=== PATIENT | male | born 1940 | race Caucasian/White ===

== ENCOUNTER → 2020-12-14 | Outpatient (CLI) | payer OTHER, BC | LOC: SJCVC 11:07 | PROVIDERS: ATTEND Internal Medicine Cardiovascular Disease | DX: I25.810 Atherosclerosis of coronary artery bypass graft(s) without angina pectoris (principal); I10 Essential (primary) hypertension; E78.5 Hyperlipidemia, unspecified; I65.23 Occlusion and stenosis of bilateral carotid arteries; H34.233 Retinal artery branch occlusion, bilateral; I35.0 Nonrheumatic aortic (valve) stenosis; Z95.5 Presence of coronary angioplasty implant and graft; K57.90 Diverticulosis of intestine, part unspecified, without perforation or abscess without bleeding; L72.3 Sebaceous cyst; Z79.899 Other long term (current) drug therapy; Z88.0 Allergy status to penicillin; Z88.1 Allergy status to other antibiotic agents; Z88.5 Allergy status to narcotic agent; Z88.8 Allergy status to other drugs, medicaments and biological substances ==

== ENCOUNTER → 2021-01-10 | Outpatient (CLI) | payer OTHER, BC | LOC: SJCVCIMAG 08:07 | PROVIDERS: ATTEND Internal Medicine Cardiovascular Disease | DX: I07.1 Rheumatic tricuspid insufficiency (principal); I10 Essential (primary) hypertension; R06.00 Dyspnea, unspecified; R53.83 Other fatigue ==

== ENCOUNTER → 2021-01-27 | Outpatient (CLI) | payer OTHER, BC | LOC: RAD 12:29 | PROVIDERS: ATTEND Internal Medicine | DX: J44.9 Chronic obstructive pulmonary disease, unspecified (principal) ==

== ENCOUNTER → 2021-02-07 | Outpatient (CLI) | payer OTHER, BC | LOC: CAT 08:16 | PROVIDERS: ATTEND Internal Medicine | DX: J44.9 Chronic obstructive pulmonary disease, unspecified (principal); K76.89 Other specified diseases of liver; Z82.5 Family history of asthma and other chronic lower respiratory diseases ==

== ENCOUNTER → 2021-02-24 | Outpatient (CLI) | payer OTHER, BC | LOC: PUL 10:46 | PROVIDERS: ATTEND Internal Medicine | DX: J44.9 Chronic obstructive pulmonary disease, unspecified (principal); Z20.822 Contact with and (suspected) exposure to COVID-19 ==

== ENCOUNTER → 2021-04-11 | Outpatient (CLI) | payer OTHER, BC ==
[~2021-04-11] MED LIST: APAP W/CODEINE1 TA2 PO; BIMATOPROST2.5 ML LT. EYE; BUDESONIDE1 MG/2 ML NEB; COMBIVENT RESPIM4 GM INH; DILTIAZEM ER180 M2 PO; FISH OIL 1,0001 EAC9 PO; FORMOTEROL20 MCG/2 M INH; IPRAT-ALBUT 0.5-3 ML NEB; ISOSORBIDE MONO10 MG PO; LOVASTATIN 20 M20 MG PO; PLAVIX 75 MG TA75 MG PO; SUPER THERAVIT1 EACH PO
== END ==
LOC: SJCVCIMAG 14:06 → SJCVC 14:06
PROVIDERS: ATTEND Internal Medicine Cardiovascular Disease
DX: I08.0 Rheumatic disorders of both mitral and aortic valves (principal); R94.31 Abnormal electrocardiogram [ECG] [EKG]; I25.810 Atherosclerosis of coronary artery bypass graft(s) without angina pectoris; I10 Essential (primary) hypertension; E78.5 Hyperlipidemia, unspecified; H34.233 Retinal artery branch occlusion, bilateral; J44.9 Chronic obstructive pulmonary disease, unspecified; R07.9 Chest pain, unspecified; Z95.5 Presence of coronary angioplasty implant and graft; Z79.899 Other long term (current) drug therapy; Z88.0 Allergy status to penicillin; Z88.8 Allergy status to other drugs, medicaments and biological substances; Z88.5 Allergy status to narcotic agent; Z91.013 Allergy to seafood; Z82.49 Family history of ischemic heart disease and other diseases of the circulatory system

== ENCOUNTER → 2021-04-12 | Outpatient (CLI) | payer OTHER, BC ==
[~2021-04-12] VITALS: Ht 177.8 cm; Wt 84.4 kg
[2021-04-12 08:29] VITALS: BP 170/79
[2021-04-12 08:42] LABS: HEMATOCRIT 43.4 % (42.0-52.0); HEMOGLOBIN 14.5 gm/dL (14.0-18.0); MCH 31.1 pg (26.0-34.0); MCHC 33.4 g/dL (28.0-37.0); MCV 93.1 fL (80.0-100.0); RBC 4.66 mil/uL (4.50-6.00); RDW 13.1 % (10.5-14.5); WBC 3.7 thou/uL (4.0-11.0)
[2021-04-12 08:55] LABS: CALCIUM 8.7 mg/dL (8.5-10.1); POTASSIUM 3.9 mmol/L (3.5-5.1)
--- NOTE | 2021-04-12 17:59 | CATHLAB ---
[facility] [place] [address] INVASIVE PROCEDURE REPORT Name: SARAH HOSKINS Matthew Room #: REG [place] Camelia#: [id number] Admission: 04/12/21 Attend Phys: Stefan Oliver MD, Discharge: Date of : 36 Report #: [id number] THIS REPORT FOR: cc: Regis York MD, Michael S. MD Mancuso, Gerald M. MD [facility] ~ APPROVED REPORT Study performed: 04/12/2021 09:45:01 Patient Details Patient Status: Out-Patient Room #: The patient is a 81 year-old male Event Personnel Stefan Oliver Blast Furnace Operator, Carmine Chin RN RN, Chelsie Jones RTR Scrub, Santo Sanchez RTR Monitor Procedures Performed Right and Left Heart Cath Lt Vent/Cors/Grafts [id number] RLLVCORCAB Art Access - R femoral artery* Angelito Access - R femoral vein Renal Bilateral Peripheral Angiography 3495406 CVRENALBIL Abdominal Aortography 304610 Hemostasis w/ Mynx 38765 Initial Mod Sed Same Phys/QHP Gr5y 569345 19111 Mod Sed Same Phys/QHP Ea 421729 Indication Chest pain Procedure Narrative The Right Groin^ was infiltrated with 1% Lidocaine subcutaneous anesthesia. A Right Heart Catheterization was performed with a 7 Fr. Kimberton-Robin catheter and pressure were recorded. Cardiac outputs were obtained by the Thermal Dilution method. A PINNACLE 6FR Sheath #[id number] sheath was inserted into the RFA^. Coronary angiography was performed using coronary diagnostic catheters. The right coronary system was accessed and visualized with a 6FR RCB #[id number] catheter. The left coronary system was accessed and visualized with a JL4 catheter. The left ventricle was accessed and visualized with a PIGTAIL catheter. Left ventricular/Aortic Valve gradient assessed via catheter pullback. Left ventriculogram was performed in 30 degree projection. An aortogram of the abdominal aorta was performed. Closure device was deployed with a Fr MYNXGRIP 6/7F #[id number]. The patient tolerated the procedure well and there were no complications [address] [address] INVASIVE PROCEDURE REPORT Name: SARAH HOSKINS Room #: [facility]#: [id number] Admission: 04/12/21 Attend Phys: Stefan Oliver, Discharge: Date of : 38 Report #: [id number] associated with the procedure. There was no hematoma. Intraoperative Conscious Sedation Sedation start time: 10:16 Case end Time: 11:03 Fentanyl 100 mcg Versed 1 mg Fluoro Time: 4.40 minutes Dose: DAP 7278.80 cGycm2 902 mGy Contrast Type and Amount: Omnipaque 145 ml Hemodynamics The right atrial mean pressure is 6 mmHg. The right ventricular pressure is 22/11 mmHg. The pulmonary artery pressure is 22/10 mmHg with a mean of 15 mmHg. The mean pulmonary capillary wedge pressure is 11 mmHg. The aortic pressure is 154/66 mmHg with a mean of 96 mmHg. The left ventricular pressure is 195/3 mmHg with a mean of mmHg. The left ventricular end diastolic pressure is 16 mmHg. Pullback from the left ventricle to the aorta revealed no gradient across the aortic valve. The cardiac output using thermo method is 3.60 L/min. Conclusion #1 Successful right heart catheterization with cardiac output by thermodilution. See above hemodynamics. #2 normal left ventricular size systolic function lower limits of normal EF 50% range. #3 abdominal aortogram is moderately ectatic with moderate plaquing no definite aneurysm or significant stenosis. #4 selective injection of right renal artery has a 30 to 40% ostial lesion. Left renal artery is widely patent. This was performed due to significant labile blood pressure systolic pressure initially 200 mmHg. #5 left main with some mild distal narrowing giving rise to an LAD which occludes in the large circumflex artery previously stented. #6 the LAD is a proximal stent and then occludes after septal brine maker. #7 the VALDEZ to LAD is intact widely patent filling this LAD which is well preserved around the apex. Some retrograde filling of a small diagonal branch. #8 the circumflex OM previously stented is widely patent the stent appears to extend into the left main. No significant occlusive disease. #9 an SVG to the OM branch is occluded. #10 the wrangell right coronary artery is occluded. #11 the vein graft to the PDA is intact the proximal segment has a [facility] [address] [place] [address] INVASIVE PROCEDURE REPORT Name: SARAH HOSKINS Room #: JON Denise#: [id number] Admission: 04/12/21 Attend Phys: Stefan Oliver, Discharge: Date of : 36 Report #: [id number] 50% cleft-like narrowing and then fills a small PDA BOB system. No indication for intervention. Recommendations and plan: Continue aggressive risk factor modification there is no indication for coronary intervention. No evidence of pulmonary hypertension. Chest pain is not of cardiac etiology. <ELECTRONICALLY SIGNED> By: Stefan Oliver MD, FACC 04/12/211757 57 57 Stefan Oliver MD, FACC /INF
== END ==
LOC: CATH 06:18
PROVIDERS: ATTEND Internal Medicine Cardiovascular Disease
DX: R07.9 Chest pain, unspecified (principal); I25.810 Atherosclerosis of coronary artery bypass graft(s) without angina pectoris; I70.1 Atherosclerosis of renal artery; I70.0 Atherosclerosis of aorta; I10 Essential (primary) hypertension; J44.9 Chronic obstructive pulmonary disease, unspecified; E78.5 Hyperlipidemia, unspecified; I25.2 Old myocardial infarction; Z98.890 Other specified postprocedural states; Z79.899 Other long term (current) drug therapy; Z82.49 Family history of ischemic heart disease and other diseases of the circulatory system; Z95.1 Presence of aortocoronary bypass graft

== ENCOUNTER → 2021-04-18 | Outpatient (CLI) | payer OTHER, BC | LOC: CAT 09:07 | PROVIDERS: ATTEND Internal Medicine | DX: J34.2 Deviated nasal septum (principal); J32.9 Chronic sinusitis, unspecified; J34.89 Other specified disorders of nose and nasal sinuses; J45.991 Cough variant asthma; Z20.822 Contact with and (suspected) exposure to COVID-19 ==

== ENCOUNTER → 2021-04-18 | Outpatient (CLI) | payer OTHER, BC | LOC: LAB 10:11 | PROVIDERS: ATTEND Internal Medicine | DX: J45.991 Cough variant asthma (principal) ==

== ENCOUNTER → 2021-05-04 | Outpatient (CLI) | payer OTHER, BC ==
--- NOTE | ~2021-05-04 | PFR/MVV ---
[facility] [place] [address] PULMONARY FUNCTION MVV/REPORT Name: SARAH HOSKINS Room #: REG [facility]#: [id number] Admission: 05/04/21 Attend Phys: Brandon Garces MD Discharge: Date of : 36 Report #: [id number] THIS REPORT FOR: //name// >> SPIROMETRY: (BTPS) Height: in cm Weight: lbs kg Exam Date: PRE-RX POST-RX PRED BEST %PRED BEST %PRED %CHG FVC LITERS . . . . . . FEV1 LITERS . . . . . . FEV1/FVC % . . . . . . QUJ47-76% L/Sec . . . . . . PEF L/SEC . . . . . . FEF50/FIF50 UNITLESS . . . . . . MVV L/Min . . . f 1/Min . . . >> LUNG VOLUMES: (BTPS) PRE-RX POST-RX PRED AVG %PRED AVG %PRED %CHG VC Liters . . . . . . TLC Liters . . . . . . RV Liters . . . . . . RV/TLC % . . . . . . FRC PL Liters . . . . . . FRC N2 Liters . . . . . . ERV Liters . . . . . . IC Liters . . . . . . >> DIFFUSION: DLCO ml/Min/mmHg . . . . . . DL Ember ml/Min/mmHg . . . . . . DLCO/VA ml/Min/mmHg . . . . . . VA Liters . . . . . . COMMENTS: COMMENTS: >> RESISTANCE: [facility] [address] [place] [address] PULMONARY FUNCTION MVV/REPORT Name: SARAH HOSKINS Room #: REG [place] PoeJosephine#: [id number] Admission: 05/04/21 Attend Phys: Brandon Garces MD Discharge: Date of : 36 Report #: [id number] PRE-RX PRED AVG %PRED Raw Total cmH20/L/Sec . . . Raw Insp cmH20/L/Sec . . . Raw Exp cmH20/L/Sec . . . Raw cmH20/L/Sec . . . Gaw L/Sec/cmH20 . . . sRaw cmH20 Sec . . . sGaw l/cmH20 Sec . . . Vtq Liters . . . # = OUTSIDE 95% CONFIDENCE INTERVAL CALIBRATION: PRED: 3.00 ACTUAL: EXP 3.01 INSP 3.02 [facility] [place] [address] N-1804-4 >> INTERPRETATION/IMPRESSION: DATE OF SERVICE: 05/04/2021 NO DICTATION By: Brandon Garces MD /fco
--- NOTE | ~2021-05-04 | MCT ---
[facility] [place] [address] METHACHOLINE CHALLENGE TEST Name: SARAH HOSKINS Room #: REG [place] Denise#: [id number] Admission: 05/04/21 Attend Phys: Brandon Garces MD Discharge: Date of : 38 Report #: [id number] THIS REPORT FOR: //name// COPIES FOR: AGE: 81 SEX/RACE: M/C Height: 68 in Exam Date: 05/04/21 Weight: 180 lbs BTPS: X >> PRE BRONCHODILATOR: PREDICTED BEST %PRED FORCED VITAL CAPACITY (FRC) 3.75 L 2.97 LPM 79 % FORCED EXP VOL/SEC (FEV1) 2.34 L FEV/FVC 69 % MAX MID-EXP FLOW (FEF 25-75) 1.97 L/SEC 0.48 L/SEC 25 % PEAK EXP FLOW RATE (FEF MAX) 7.33 L/MIN 4.75 L/MIN MED-VC RATIO (FEF 50/FEF 50) .09 Baseline: Phenol Saline Level 1: 0.025 mg/ml BEST %PRED %CHANGE BEST %PRED %CHANGE FVC 2.58 L 69 % -13 % FVC 2.83 L 75 % 10 % FEV1 1.34 L 57 % -18 % FEV1 1.38 L 59 % 3 % Level 2: 0.25 mg/ml Level 3: 2.5 mg/ml BEST %PRED %CHANGE BEST %PRED %CHANGE FVC 2.68 L 71 % 4 % FVC 2.43 L 65 % -6 % FEV1 1.34 L 57 % 0 % FEV1 1.21 L 51 % -10 % . Level 4: 10 mg/ml Level 5: 25 mg/ml BEST %PRED %CHANGE BEST %PRED %CHANGE FVC 2.50 L 67 % -3 % FVC 1.55 L 41 % -40 % FEV1 1.14 L 49 % -15 % FEV1 0.70 L 30 % -48 % Post Bronchodilator: 1st Treatment Post Bronchodilator: 2nd Treatment BEST %PRED %CHANGE BEST %PRED %CHANGE [facility] [address] [place] [address] METHACHOLINE CHALLENGE TEST Name: SARAH HOSKINS Room #: REG CLI [facility]#: [id number] Admission: 05/04/21 Attend Phys: Brandon Garces MD Discharge: Date of : 36 Report #: [id number] FVC 2.75 L 73 % 7 % FVC L % % FEV1 1.16 L 50 % -13 % FEV1 L % % Post Bronchodilator: 3rd Treatment BEST %PRED %CHANGE FVC L % % FEV1 L % % >> INTERPRETATION: DATE OF SERVICE: 05/04/2021 A methacholine challenge test, the patient was studied at baseline and with increasing amounts of methacholine. ____ the FVC decreased by 40% and FEV1 decreased by 48%. This is a marked decrease from baseline and it is a positive methacholine challenge test. After bronchodilator was given, the spirometry returned to greater than 80% of normal. By: Brandon Garces MD /nt
== END ==
LOC: PUL 09:30
PROVIDERS: ATTEND Internal Medicine
DX: J45.991 Cough variant asthma (principal); Z20.822 Contact with and (suspected) exposure to COVID-19